=== PATIENT | male | born 1970 | race Caucasian/White ===

== ENCOUNTER → 2018-01-05 | Outpatient (CLI) | payer OTHER | END | disposition home or self-care (01) | LOC: ECHO 12:34 | DX: I25.10 Atherosclerotic heart disease of native coronary artery without angina pectoris (principal); I10 Essential (primary) hypertension; E11.9 Type 2 diabetes mellitus without complications; R53.83 Other fatigue; R60.0 Localized edema | CPT/HCPCS: 93306 ==

== ENCOUNTER 2018-06-20 05:45 | Emergency (ER) | payer OTHER ==
[~2018-06-20] VITALS: Ht 175.3 cm; Wt 106.6 kg
[~2018-06-20 05:45] MED LIST: AMLO10TA6 PO; ASPI-252 PO; ATEN100T PO; ATOR20TA PO; CARV12.5 PO; CLOP75TA57 PO; HYDR-971 PO; HYDR25TA9 PO; LOSA100T2 PO; LOSA100T7 PO; METF10007 PO; METF500T16 PO; SULF1TAB24 PO
--- NOTE | 2018-06-20 06:20 | EKG ---
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
[2018-06-20 06:27] LABS: BASO # 0.1 x10^3/uL (0.0-0.2); BASO % 1 % (0-3); EOS # 0.3 x10^3/uL (0.0-0.7); EOS % 3 % (0-3); HEMATOCRIT 39.7 % (39.0-53.0); HEMOGLOBIN 14.5 g/dL (13.0-17.5); LYMPH # 1.5 x10^3/uL (1.0-4.8); LYMPH % 18 % (24-48); MEAN CORPUSCULAR HEMOGLOBIN 32 pg (25-35); MEAN CORPUSCULAR HGB CONC 37 g/dL (31-37); MEAN CORPUSCULAR VOLUME 88 fL (79-100); MONO # 0.5 x10^3/uL (0.0-1.1); MONO % 7 % (0-9); NEUT # 5.8 x10^3uL (1.8-7.7); NEUT % 71 % (31-73); PLATELET COUNT 236 x10^3/uL (140-400); RED BLOOD COUNT 4.52 x10^6/uL (4.30-5.70); RED CELL DISTRIBUTION WIDTH 12.7 % (11.5-14.5); WHITE BLOOD COUNT 8.2 x10^3/uL (4.0-11.0)
[2018-06-20] MEDS: NITROGLYCERIN SUBLINGUAL 0.4 MG BOTTLE OF 25. SL PRN (06:30)
[2018-06-20] MEDS: ASPIRIN 325 MG TABLET PO ONE (06:30)
[2018-06-20 06:42] LABS: CALCIUM 8.8 mg/dL (8.5-10.1); CREATININE 0.9 mg/dL (0.7-1.3); GFR 90.1
[2018-06-20 06:45] LABS: PROTHROMBIN TIME PATIENT 11.9 SEC (11.7-14.0)
[2018-06-20 06:48] LABS: ALBUMIN 3.3 g/dL (3.4-5.0); MAGNESIUM 1.8 mg/dL (1.8-2.4); TOTAL BILIRUBIN 0.5 mg/dL (0.2-1.0); TOTAL PROTEIN 6.6 g/dL (6.4-8.2)
--- NOTE | 2018-06-20 06:59 | PHYS DOC ---
Past Medical History Past Medical History: Diabetes-Type II, High Cholesterol, Hypertension, [place], MRSA Past Surgical History: Other Additional Past Surgical Histo: hernia repair and R hand surgery Alcohol Use: Occasionally Drug Use: None Adult General Chief Complaint Chief Complaint: CHEST PAIN HPI HPI Patient is a 48 year old L presented ER today for evaluation of chest pain since yesterday. Chest pain started yesterday, then he woke up this morning with more pain, he has history coronary artery disease, had a cardiac stent in the past. Patient went to [facility] for vacation, came back last night. He denies any cough or fever. Patient denies any lower extremity pain or swelling. Review of Systems Review of Systems Constitutional: Denies fever or chills [] Eyes: Denies change in visual acuity, redness, or eye pain [] HENT: Denies nasal congestion or sore throat [] Respiratory: Denies cough or shortness of breath [] Cardiovascular: Positive for chest pain. GI: Denies abdominal pain, nausea, vomiting, bloody stools or diarrhea [] : Denies dysuria or hematuria [] Musculoskeletal: Denies back pain or joint pain [] Integument: Denies rash or skin lesions [] Neurologic: Denies headache, focal weakness or sensory changes [] Endocrine: Denies polyuria or polydipsia [] All other systems were reviewed and found to be within normal limits, except as documented in this note. Current Medications Current Medications Current Medications Medications (Trade) Dose Ordered Sig/Juan Start Time Stop Time Status Last Admin Dose Admin Aspirin (Cathleen Aspirin) 325 mg 1X ONCE 06/20/18 06:30 06/20/18 06:31 DC 06/20/18 06:30 325 MG Info (CONTRAST GIVEN -- Rx MONITORING) 1 each PRN DAILY PRN 06/20/18 07:15 06/22/18 07:14 Iohexol (Omnipaque 300 Mg/ml) 75 ml 1X ONCE 06/20/18 07:00 06/20/18 07:01 DC 06/20/18 07:26 75 ML Nitroglycerin (Nitrostat) 0.4 mg PRN Q5MIN PRN 06/20/18 06:00 06/21/18 05:59 06/20/18 06:30 0.4 MG Potassium Chloride (Klor-Con) 40 meq 1X ONCE 06/20/18 08:30 10/31/18 08:31 Allergies Allergies Allergies Coded Allergies Type Severity Reaction Last Updated Verified No Known Drug Allergies 10/11/14 No Physical Exam Physical Exam Constitutional: Well developed, well nourished, no acute distress, non-toxic appearance. [] HENT: Normocephalic, atraumatic, bilateral external ears normal, oropharynx moist, no oral exudates, nose normal. [] Eyes: PERRLA, EOMI, conjunctiva normal, no discharge. [] Neck: Normal range of motion, no tenderness, supple, no stridor. [] Cardiovascular:Heart rate regular rhythm, no murmur, BILATERAL LOWER EXTREMITIES PITTING EDEMA 2 PLUS. Lungs & Thorax: Bilateral breath sounds clear to auscultation [] Abdomen: Bowel sounds normal, soft, no tenderness, no masses, no pulsatile masses. [] Skin: Warm, dry, no erythema, no rash. [] Back: No tenderness, no CVA tenderness. [] Extremities: No tenderness, no cyanosis, no clubbing, ROM intact, no edema. [] Neurologic: Alert and oriented X 3, normal motor function, normal sensory function, no focal deficits noted. [] Psychologic: Affect normal, judgement normal, mood normal. [] Current Patient Data Vital Signs Vital Signs Date Time Temp Pulse Resp B/P (MAP) Pulse Ox O2 Delivery O2 Flow Rate FiO2 06/20/18 06:30 83 139/88 06/20/18 06:25 18 96 Room Air 06/20/18 05:45 97.8 97.8 Lab Values Laboratory Tests Test 06/20/18 06:05 White Blood Count 8.2 x10^3/uL (4.0-11.0) Red Blood Count 4.52 x10^6/uL (4.30-5.70) Hemoglobin 14.5 g/dL (13.0-17.5) Hematocrit 39.7 % (39.0-53.0) Mean Corpuscular Volume 88 fL (79-100) Mean Corpuscular Hemoglobin 32 pg (25-35) Mean Corpuscular Hemoglobin Concent 37 g/dL (31-37) Red Cell Distribution Width 12.7 % (11.5-14.5) Platelet Count 236 x10^3/uL (140-400) Neutrophils (%) (Auto) 71 % (31-73) Lymphocytes (%) (Auto) 18 % (24-48) L Monocytes (%) (Auto) 7 % (0-9) Eosinophils (%) (Auto) 3 % (0-3) Basophils (%) (Auto) 1 % (0-3) Neutrophils # (Auto) 5.8 x10^3uL (1.8-7.7) Lymphocytes # (Auto) 1.5 x10^3/uL (1.0-4.8) Monocytes # (Auto) 0.5 x10^3/uL (0.0-1.1) Eosinophils # (Auto) 0.3 x10^3/uL (0.0-0.7) Basophils # (Auto) 0.1 x10^3/uL (0.0-0.2) Prothrombin Time 11.9 SEC (11.7-14.0) Prothrombin Time INR 0.9 (0.8-1.1) PTT 24 SEC (24-38) D-Dimer (Michelle) 0.46 ug/mlFEU (0.00-0.50) Sodium Level 139 mmol/L (136-145) Potassium Level 3.0 mmol/L (3.5-5.1) L Chloride Level 101 mmol/L (98-107) Carbon Dioxide Level 28 mmol/L (21-32) Anion Gap 10 (6-14) Blood Urea Nitrogen 18 mg/dL (8-26) Creatinine 0.9 mg/dL (0.7-1.3) Estimated GFR (Cockcroft-Gault) 90.1 BUN/Creatinine Ratio 20 (6-20) Glucose Level 256 mg/dL (70-99) H Calcium Level 8.8 mg/dL (8.5-10.1) Magnesium Level 1.8 mg/dL (1.8-2.4) Total Bilirubin 0.5 mg/dL (0.2-1.0) Aspartate Amino Transferase (AST) 92 U/L (15-37) H Alanine Aminotransferase (ALT) 129 U/L (16-63) H Alkaline Phosphatase 103 U/L (46-116) Creatine Kinase 191 U/L (39-308) Creatine Kinase MB (Mass) 1.0 ng/mL (0.0-3.6) Creatine Kinase MB Relative Index 0.5 % (0-4) Troponin I Quantitative 0.017 ng/mL (0.000-0.055) VO-Hkn-Y-Type Natriuretic Peptide 23 pg/mL (0-124) Total Protein 6.6 g/dL (6.4-8.2) Albumin 3.3 g/dL (3.4-5.0) L Albumin/Globulin Ratio 1.0 (1.0-1.7) Lipase 119 U/L (73-393) Laboratory Tests 06/20/18 06:05 Laboratory Tests 06/20/18 06:05 EKG EKG EKG: HEART RATE OF 86 BPM, SINUS RHYTHM, NO STEMI. Radiology/Procedures Radiology/Procedures [[facility] [address] [place], [place] [id number] IMAGING REPORT Signed PATIENT: MEGHANN VU ACCOUNT: [id number] : 1970 LOCATION: ER AGE: 48 SEX: M EXAM STATUS: REG ER ORD. PHYSICIAN: PARAG GUZMÁN DO REASON: CHEST PAIN, SOA PROCEDURE: CT ANGIOGRAPHY CHEST CTA of the chest with contrast, 06/20/2018: HISTORY: Chest pain, shortness of breath Multidetector CT imaging was performed following an IV bolus injection of iodinated contrast material. Multiplanar reconstructions were produced including coronal MIP images. The degree of opacification of the central pulmonary arteries is suboptimal due to technical factors. No filling defects are seen in the central pulmonary arteries. Small peripheral emboli cannot be excluded. The thoracic aorta is of normal caliber without evidence of dissection. Moderate coronary artery calcifications are present. No mediastinal adenopathy is seen. There are calcified granulomata in the lungs. There is minimal dependent atelectasis. No pulmonary consolidation or mass is seen. There is no evidence of pleural fluid. IMPRESSION: 1. No CT evidence of central pulmonary emboli, although the degree of pulmonary artery opacification was suboptimal. 2. Moderate coronary artery calcifications. PQRS Compliance Statement: One or more of the following individualized dose reduction techniques were utilized for this examination: 1. Automated exposure control 2. Adjustment of the mA and/or kV according to patient size 3. Use of iterative reconstruction technique Electronically signed by: Vijay Fang MD (06/20/2018 7:55 AM) [facility] DICTATED and SIGNED BY: VIJAY FANG MD DATE: 06/20/18 0746 ] Course & Med Decision Making Course & Med Decision Making Pertinent Labs and Imaging studies reviewed. (See chart for details) [] Dragon Disclaimer Dragon Disclaimer This electronic medical record was generated, in whole or in part, using a voice recognition dictation system. Departure Departure Impression: Primary Impression: Chest pain Disposition: ADMITTED INPATIENT Admitting Physician: Karla Prado Referrals: NERIS FLORES MD (PCP) PARAG GUZMÁN DO Jun 20, 2018 06:59
[2018-06-20] MEDS ORDERED: CONTRAST GIVEN. MC PRN (07:15)
[2018-06-20] MEDS: IOHEXOL 300 MG/ML 100ML VIAL. IV ONE (07:26)
--- NOTE | 2018-06-20 07:48 | RAD ---
Portable chest, 06/20/2018: HISTORY: Chest pain The heart size and pulmonary vascularity are normal. No pulmonary infiltrate is seen. There is no evidence of pleural fluid. IMPRESSION: No acute cardiopulmonary abnormality is detected. Electronically signed by: Vijay Fang MD (06/20/2018 7:45 AM) [facility]
--- NOTE | 2018-06-20 07:58 | RAD ---
CTA of the chest with contrast, 06/20/2018: HISTORY: Chest pain, shortness of breath Multidetector CT imaging was performed following an IV bolus injection of iodinated contrast material. Multiplanar reconstructions were produced including coronal MIP images. The degree of opacification of the central pulmonary arteries is suboptimal due to technical factors. No filling defects are seen in the central pulmonary arteries. Small peripheral emboli cannot be excluded. The thoracic aorta is of normal caliber without evidence of dissection. Moderate coronary artery calcifications are present. No mediastinal adenopathy is seen. There are calcified granulomata in the lungs. There is minimal dependent atelectasis. No pulmonary consolidation or mass is seen. There is no evidence of pleural fluid. IMPRESSION: 1. No CT evidence of central pulmonary emboli, although the degree of pulmonary artery opacification was suboptimal. 2. Moderate coronary artery calcifications. PQRS Compliance Statement: One or more of the following individualized dose reduction techniques were utilized for this examination: 1. Automated exposure control 2. Adjustment of the mA and/or kV according to patient size 3. Use of iterative reconstruction technique Electronically signed by: Vijay Fang MD (06/20/2018 7:55 AM) [facility]
[2018-06-20] MEDS ORDERED: ONDANSETRON PF 4 MG/2 ML VIAL. IV PRN (08:30)
--- NOTE | 2018-06-20 08:51 | PDOC2 ---
CONSULT Date of Consult Date of Consult DATE: 06/20/18 TIME: 08:43 Reason for Consult Reason for Consult: Chest pain, possible admit Referring Physician Referring Physician: Dr. Mtz Identification/Chief Complaint Chief Complaint Chest pain History of Present Illness Reason for Visit: Mr. Torres is a 48-year-old male with past medical history of cardiac artery disease with history of [place] status post stent placement in 2014, uncontrolled type II diabetes, hypertension, hyperlipidemia, former smoker, who presents to the emergency room this morning for acute onset chest pain. He reports he was started in the upper mid abdomen and lower sternum, felt like pressure and twisting. It resolved over about 30-45 minutes spontaneously. He notes he has had similar pain approximately 2-3 days ago that resolved spontaneously as well. He denies any exertional component to this chest pain. He denies any radiation. He denies any diaphoresis or lightheadedness. He does note some difficulty with respiration while having chest pain. All chest pain and difficulty breathing has resolved at this point in time. He was evaluated in the emergency room with labs, EKG, chest x-ray, CT angiogram of the chest. Troponin was negative with EKG showing old infarct no acute ST changes. Chest x- ray was unremarkable. CT angiogram was also unremarkable, apart from moderate coronary artery disease noted. Otherwise unremarkable. Past Medical History Past Medical History as above Past Surgical History Past Surgical History stent placement in 2014 Family History Family History No significant family history for coronary artery disease. Daughter has type 1 diabetes. Social History Social History Former smoker for many years, quit in 2014. Social alcohol use. No recreational drug use. Current Problem List Problem List Problems Medical Problems: (1) Chest pain Status: Acute Current Medications Current Medications Current Medications Aspirin (Cathleen Aspirin) 325 mg 1X ONCE PO Last administered on 06/20/18at 06: 30; Start 06/20/18 at 06:30; Stop 06/20/18 at 06:31; Status DC Nitroglycerin (Nitrostat) 0.4 mg PRN Q5MIN PRN SL CP RATING > 1/10 Last administered on 06/20/18at 06:30; Start 06/20/18 at 06:00; Stop 06/21/18 at 05: 59 Iohexol (Omnipaque 300 Mg/ml) 75 ml 1X ONCE IV Last administered on at 07:26; Start 06/20/18 at 07:00; Stop 06/20/18 at 07:01; Status DC Info (CONTRAST GIVEN -- Rx MONITORING) 1 each PRN DAILY PRN MC SEE COMMENTS; Start 06/20/18 at 07:15; Stop 06/22/18 at 07:14 Potassium Chloride (Klor-Con) 40 meq 1X ONCE PO ; Start 06/20/18 at 08:30; Stop 06/20/18 at 08:31; Status DC Ondansetron HCl (Zofran) 4 mg PRN Q8HRS PRN IV NAUSEA/VOMITING; Start at 08:30; Stop 06/21/18 at 08:29 Active Scripts Active [place] 5-325 Tablet (Acetaminophen/Hydrocodone Bitart) 1 Each Tablet 1-2 Tab PO Q4-6HRS Bactrim Ds Tablet (Sulfamethoxazole/Trimethoprim) 1 Each Tablet 1 Tab PO BID Plavix (Clopidogrel Bisulfate) 75 Mg Tablet 75 Mg PO DAILYWBKFT Coreg (Carvedilol) 12.5 Mg Tablet 12.5 Mg PO BIDWMEALS Lipitor (Atorvastatin Calcium) 20 Mg Tablet 20 Mg PO QHS Ecotrin (Aspirin) 325 Mg Tablet. 325 Mg PO DAILYWBKFT Reported Cozaar (Losartan Potassium) 100 Mg Tablet 1 Tab PO DAILY Metformin Hcl 500 Mg Tablet 500 Mg PO DAILYWSUP Hydrochlorothiazide Tablet (Hydrochlorothiazide) 25 Mg Tablet 25 Mg PO DAILY Losartan Potassium 100 Mg Tablet 100 Mg PO DAILY Amlodipine Besylate 10 Mg Tablet 10 Mg PO DAILY Metformin Hcl 1,000 Mg Tablet 1,000 Mg PO DAILYWBKFT Allergies Allergies: Coded Allergies: No Known Drug Allergies (Unverified , 10/11/14) ROS Review of System As noted above, otherwise negative. Physical Exam Physical Exam Alert, oriented, no acute distress CTAB, nonlabored respirations RRR, no murmur Cooperative, calm Vitals VITALS Vital Signs Date Time Temp Pulse Resp B/P (MAP) Pulse Ox O2 Delivery O2 Flow Rate FiO2 06/20/18 06:30 83 139/88 06/20/18 06:25 18 96 Room Air 06/20/18 05:45 97.8 97.8 Labs Labs Laboratory Tests Test 06/20/18 06:05 White Blood Count 8.2 x10^3/uL (4.0-11.0) Red Blood Count 4.52 x10^6/uL (4.30-5.70) Hemoglobin 14.5 g/dL (13.0-17.5) Hematocrit 39.7 % (39.0-53.0) Mean Corpuscular Volume 88 fL (79-100) Mean Corpuscular Hemoglobin 32 pg (25-35) Mean Corpuscular Hemoglobin Concent 37 g/dL (31-37) Red Cell Distribution Width 12.7 % (11.5-14.5) Platelet Count 236 x10^3/uL (140-400) Neutrophils (%) (Auto) 71 % (31-73) Lymphocytes (%) (Auto) 18 % (24-48) Monocytes (%) (Auto) 7 % (0-9) Eosinophils (%) (Auto) 3 % (0-3) Basophils (%) (Auto) 1 % (0-3) Neutrophils # (Auto) 5.8 x10^3uL (1.8-7.7) Lymphocytes # (Auto) 1.5 x10^3/uL (1.0-4.8) Monocytes # (Auto) 0.5 x10^3/uL (0.0-1.1) Eosinophils # (Auto) 0.3 x10^3/uL (0.0-0.7) Basophils # (Auto) 0.1 x10^3/uL (0.0-0.2) Prothrombin Time 11.9 SEC (11.7-14.0) Prothromb Time International Ratio 0.9 (0.8-1.1) Activated Partial Thromboplast Time 24 SEC (24-38) D-Dimer (Michelle) 0.46 ug/mlFEU (0.00-0.50) Sodium Level 139 mmol/L (136-145) Potassium Level 3.0 mmol/L (3.5-5.1) Chloride Level 101 mmol/L (98-107) Carbon Dioxide Level 28 mmol/L (21-32) Anion Gap 10 (6-14) Blood Urea Nitrogen 18 mg/dL (8-26) Creatinine 0.9 mg/dL (0.7-1.3) Estimated GFR (Cockcroft-Gault) 90.1 BUN/Creatinine Ratio 20 (6-20) Glucose Level 256 mg/dL (70-99) Calcium Level 8.8 mg/dL (8.5-10.1) Magnesium Level 1.8 mg/dL (1.8-2.4) Total Bilirubin 0.5 mg/dL (0.2-1.0) Aspartate Amino Transf (AST/SGOT) 92 U/L (15-37) Alanine Aminotransferase (ALT/SGPT) 129 U/L (16-63) Alkaline Phosphatase 103 U/L (46-116) Creatine Kinase 191 U/L (39-308) Creatine Kinase MB (Mass) 1.0 ng/mL (0.0-3.6) Creatine Kinase MB Relative Index 0.5 % (0-4) Troponin I Quantitative 0.017 ng/mL (0.000-0.055) NL-Bhp-E-Type Natriuretic Peptide 23 pg/mL (0-124) Total Protein 6.6 g/dL (6.4-8.2) Albumin 3.3 g/dL (3.4-5.0) Albumin/Globulin Ratio 1.0 (1.0-1.7) Lipase 119 U/L (73-393) Laboratory Tests Test 06/20/18 06:05 White Blood Count 8.2 x10^3/uL (4.0-11.0) Red Blood Count 4.52 x10^6/uL (4.30-5.70) Hemoglobin 14.5 g/dL (13.0-17.5) Hematocrit 39.7 % (39.0-53.0) Mean Corpuscular Volume 88 fL (79-100) Mean Corpuscular Hemoglobin 32 pg (25-35) Mean Corpuscular Hemoglobin Concent 37 g/dL (31-37) Red Cell Distribution Width 12.7 % (11.5-14.5) Platelet Count 236 x10^3/uL (140-400) Neutrophils (%) (Auto) 71 % (31-73) Lymphocytes (%) (Auto) 18 % (24-48) Monocytes (%) (Auto) 7 % (0-9) Eosinophils (%) (Auto) 3 % (0-3) Basophils (%) (Auto) 1 % (0-3) Neutrophils # (Auto) 5.8 x10^3uL (1.8-7.7) Lymphocytes # (Auto) 1.5 x10^3/uL (1.0-4.8) Monocytes # (Auto) 0.5 x10^3/uL (0.0-1.1) Eosinophils # (Auto) 0.3 x10^3/uL (0.0-0.7) Basophils # (Auto) 0.1 x10^3/uL (0.0-0.2) Prothrombin Time 11.9 SEC (11.7-14.0) Prothromb Time International Ratio 0.9 (0.8-1.1) Activated Partial Thromboplast Time 24 SEC (24-38) D-Dimer (Michelle) 0.46 ug/mlFEU (0.00-0.50) Sodium Level 139 mmol/L (136-145) Potassium Level 3.0 mmol/L (3.5-5.1) Chloride Level 101 mmol/L (98-107) Carbon Dioxide Level 28 mmol/L (21-32) Anion Gap 10 (6-14) Blood Urea Nitrogen 18 mg/dL (8-26) Creatinine 0.9 mg/dL (0.7-1.3) Estimated GFR (Cockcroft-Gault) 90.1 BUN/Creatinine Ratio 20 (6-20) Glucose Level 256 mg/dL (70-99) Calcium Level 8.8 mg/dL (8.5-10.1) Magnesium Level 1.8 mg/dL (1.8-2.4) Total Bilirubin 0.5 mg/dL (0.2-1.0) Aspartate Amino Transf (AST/SGOT) 92 U/L (15-37) Alanine Aminotransferase (ALT/SGPT) 129 U/L (16-63) Alkaline Phosphatase 103 U/L (46-116) Creatine Kinase 191 U/L (39-308) Creatine Kinase MB (Mass) 1.0 ng/mL (0.0-3.6) Creatine Kinase MB Relative Index 0.5 % (0-4) Troponin I Quantitative 0.017 ng/mL (0.000-0.055) OH-Jbs-I-Type Natriuretic Peptide 23 pg/mL (0-124) Total Protein 6.6 g/dL (6.4-8.2) Albumin 3.3 g/dL (3.4-5.0) Albumin/Globulin Ratio 1.0 (1.0-1.7) Lipase 119 U/L (73-393) Assessment/Plan Assessment/Plan Chest pain Coronary artery disease status post [place], stent placement Uncontrolled type 2 diabetes Hypertension Hyperlipidemia Nicotine dependence Obesity Discussed options for management with patient. He prefers to repeat troponin and EKG in the ED and if negative, discharge with close follow-up with primary care and with Dr. Lund, his telegraph mechanic. He would certainly benefit from further workup with either a stress test or cardiac catheterization as outpatient if these tests are negative. We discussed continued smoking avoidance and improving dietary and lifestyle modification to improve his uncontrolled type 2 diabetes. If testing is positive, he will be admitted and cardiology will be consulted likely for urgent cardiac catheterization. HILARY BANG MD Jun 20, 2018 08:51
[2018-06-20] MEDS: POTASSIUM CHLORIDE 20 MEQ TABLET.ER. PO ONE (09:30)
[2018-06-20 10:00] VITALS: BP 149/87
--- NOTE | 2018-06-20 10:35 | EKG ---
[facility] [address] [place] [address] Test Date: 2018-06-20 Test Time: 09:24:47 Pat Name: MEGHANN VU Department: Room: Gender: M Medical Device: : 1970 Requested By: PARAG GUZMÁN Order Number: [id number] Reading MD: Artem Cooley Measurements Intervals [place] Rate: 73 P: 0 CA: 164 QRS: 11 QRSD: 90 T: 36 QT: 406 QTc: 451 Interpretive Statements SINUS RHYTHM QRS(T) CONTOUR ABNORMALITY CONSISTENT WITH ANTEROSEPTAL INFARCT PROBABLY OLD ABNORMAL ECG No previous ECG available for comparison Electronically Signed On 06-22-2018 10:31:40 CDT by Artem Cooley
== END 2018-06-20 11:07 | disposition home or self-care (01) ==
LOC: ER 05:45
DX: R07.89 Other chest pain (principal); R60.0 Localized edema; E11.9 Type 2 diabetes mellitus without complications; E78.00 Pure hypercholesterolemia, unspecified; I10 Essential (primary) hypertension; I25.2 Old myocardial infarction
CPT/HCPCS: 36415; 71045; 71275; 80053; 82553; 83690; 83735; 83880; 84484; 85025; 85379; 85610; 85730; 93005; 99285; Q9967

== ENCOUNTER 2018-07-04 08:04 | Inpatient (IN) | payer OTHER ==
[~2018-07-04] VITALS: Ht 175.3 cm; Wt 111.1 kg
[2018-07-04] VITALS (12 sets, daily range): BP systolic 136–159; BP diastolic 74–106
[~2018-07-04 08:04] MED LIST changes: +HYDR-2145 PO; +HYDR-3164 PO; -HYDR-971 PO; -HYDR25TA9 PO
[2018-07-04] MEDS ORDERED: SITA100T PO (08:26)
[2018-07-04] MEDS ORDERED: BUPR100T7 PO (08:26)
[2018-07-04 08:51] LABS: PROTHROMBIN TIME PATIENT 13.1 SEC (11.7-14.0)
[2018-07-04 08:54] LABS: CALCIUM 9.2 mg/dL (8.5-10.1); CREATININE 0.9 mg/dL (0.7-1.3); GFR 90.1
[2018-07-04 09:03] LABS: HEMATOCRIT 40.4 % (39.0-53.0); HEMOGLOBIN 14.7 g/dL (13.0-17.5); RED BLOOD COUNT 4.57 x10^6/uL (4.30-5.70); RED CELL DISTRIBUTION WIDTH 12.9 % (11.5-14.5); WHITE BLOOD COUNT 7.8 x10^3/uL (4.0-11.0)
[2018-07-04] MEDS ORDERED: MIDAZOLAM HCL/PF 2 MG/2 ML VIAL. ONE (09:46)
[2018-07-04] MEDS ORDERED: fentaNYL PF VIAL 100 MCG/2 ML VIAL ONE ×2 (09:46→11:05)
[2018-07-04] MEDS ORDERED: IOHEXOL 300 MG/ML 100ML VIAL. ONE ×2 (09:52→10:35)
[2018-07-04] MEDS ORDERED: LIDOCAINE 1% PF 30 ML VIAL. ONE (09:52)
[2018-07-04] MEDS ORDERED: IOHEXOL 300 MG/ML 50 ML VIAL. IART ONE (10:15)
[2018-07-04] MEDS ORDERED: LIDOCAINE 1% PF 30 ML VIAL. INJ ONE (10:15)
[2018-07-04] MEDS ORDERED: MIDAZOLAM HCL/PF 2 MG/2 ML VIAL. IV ONE (10:15)
[2018-07-04] MEDS ORDERED: fentaNYL PF VIAL 100 MCG/2 ML VIAL IV ONE ×2 (10:15→11:30)
[2018-07-04] MEDS ORDERED: HEPARIN for IV BOLUS 10,000 UNIT/10 ML VIAL. ONE ×2 (10:24→11:02)
[2018-07-04] MEDS ORDERED: HEPARIN for IV BOLUS 10,000 UNIT/10 ML VIAL. IV ONE ×2 (10:30→11:15)
[2018-07-04] MEDS: IV NORMAL SALINE 1000ML BAG 1,000 ML IV SCH ×2 (11:15→23:45)
[2018-07-04] MEDS ORDERED: fentaNYL PF VIAL 100 MCG/2 ML VIAL IV PRN (13:15)
[2018-07-04] MEDS ORDERED: oxyCODONE/APAP 5/325 1 TAB TABLET PO PRN (13:15)
[2018-07-04] MEDS: CARVEDILOL 12.5 MG TABLET. PO SCH (17:24)
[2018-07-04] MEDS ORDERED: IBUPROFEN 200 MG TABLET. PO PRN (19:30)
--- NOTE | 2018-07-04 20:26 | CARD ---
MR#: [id number] Date of Study: 07/04/2018 Ordering Physician: FREDY LUND Referring Physician: FREDY LUND Tech: NAI PUCKETT RTR APPROVED REPORT Technologist: NAI PUCKETT RTR Nurse: REY ABAD RN Procedure(s) performed: MODERATE SEDATION TIME: 87 MINUTES HISTORY The patient is a 48 year-old male with a history of : previous [place], coronary artery disease, previous PCI (The PCI date was ), hypertension, dyslipidemia, family history of premature CAD, The patient has been having episodes of chest pains and had an abnormal stress test., He is coming in for a left hea rt catheterization possible PTCA possible stent., . PROCEDURE NARRATIVE After obtaining informed consent the patient was brought into the [facility]. The right groin area was prepped and draped in the usual fashion. The area was infiltrated with Xylocaine to obtain topical anesthesia. Using Seldinger technique a Cordis sheath was inserted into the femoral artery. Through this a left Ileana catheter was advanced and utilized to engage the left coronary os. Views of the left coronary artery were then done. A right Ileana catheter was then utilized to engage the right coronary os abuse of the right coronar y artery with a known. A pigtail catheter was then advanced all the way to the room with the AO and then we crossed the aort ic valve into the left ventricle, pressures were taken. The left ventriculogram was then done. Pullback pressures were done from the LV to the AO. I then carefully evaluated to findings. Coronaries: The left main is large and normal. The LAD is a large vessel that has a stent in the prox imal to mid segment that is open no in-stent disease was seen. The circumflex is a large vessel that is normal. The obtuse marginal is 100% occluded over a long segment of the proximal segment and recei ves collaterals from the RCA, it is a small vessel. The ramus intermediate is a small vessel in [facility] that has diffuse disease of the proximal to mid segment and appears to be capped there at an acute bend. The RCA see large vessel that has no significant areas of stenosis. Ventriculogram: The left ventricle is normal in size with a global ejection fraction was estimated to be about 55%. The left ventricular end-diastolic pressure was 14 mmHg. There was no gradient across the aortic valve on the pullback. After I evaluated the anatomy of the coronary stent I felt that the occluded obtuse marginal is a johnna g-standing chronic total occlusion and it is already receiving collaterals from the RCA therefore I d id not feel that we needed to do any intervention with that vessel. The ramus intermediate appears to be essentially totally occluded at an acute bend and there was some flow through there and I couldn't tell if he was just from a small bridging collateral or not and I decided to go ahead and attempt to open the vessel if possible. After the patient was fully heparinized a left Ileana guiding catheter was utilized to engage the le ft main. A guidewire was then advanced into the left main and into the ramus intermediate. Multiple attempts a t crossing the area of the acute bend with the obstruction were not successful. I tried bringing a 2. 0 mm balloon 4 extra-support but this did not work in crossing the area. I had tried with 3 different wires therefore at this point I did interview and the vessels were unchanged and I decided to termin ate the procedure at this point. An ACT was done and then an Angio-Seal collagen plug was deployed after the sheath was pulled. There did not appear to be any significant bleeding therefore a dressing was applied to the groin and the p atient was transferred to a room in satisfactory condition after tolerating the procedure rather well . Conclusion This patient has coronary artery disease, the stent to the LAD is open and has no significant resteno sis. The blocked obtuse marginal is a chronic total occlusion and I would just recommend to leave th at alone since it's already created collateral circulation. This ramus intermediate was attempted to be open but the wire wouldn't cross and every time we tried with 3 different wires they would to prolapse into a small branch that was taking off at that bend. In view of this I decided to stop the attempts at trying to open up that small ramus intermediate. I am concerned with the fact that there was extensive manipulation into the ramus intermediate with l arge LAD and circumflex in the vicinity therefore I would like to observe and monitor the patient unt il tomorrow and to continue with his aspirin and Plavix. Recommendations Daily ASA with Plavix for at least one year Signed by : Fredy Lund MD Electronically Approved : 07/04/2018 20:26:00
[2018-07-04] MEDS ORDERED: ATORVASTATIN CALCIUM 20 MG TABLET PO SCH (21:00)
[2018-07-05 03:41] VITALS: BP 131/81
[2018-07-05 07:00] VITALS: BP 135/79
[2018-07-05] MEDS ORDERED: ASPIRIN ENTERIC COATED 325 MG TABLET.DR. PO SCH (08:00)
[2018-07-05] MEDS ORDERED: CLOPIDOGREL BISULFATE 75 MG TABLET PO SCH (08:00)
[2018-07-05 08:35] LABS: ALBUMIN 3.1 g/dL (3.4-5.0); ALBUMIN/GLOBULIN RATIO 0.8 (1.0-1.7); CALCIUM 8.6 mg/dL (8.5-10.1); CREATININE 0.8 mg/dL (0.7-1.3); GFR 103.2; POTASSIUM 3.3 mmol/L (3.5-5.1); TOTAL BILIRUBIN 0.7 mg/dL (0.2-1.0); TOTAL PROTEIN 6.8 g/dL (6.4-8.2)
[2018-07-05] MEDS ORDERED: hydroCHLOROthiazide 25 MG TABLET PO SCH (09:00)
[2018-07-05] MEDS ORDERED: amLODIPine BESYLATE 10 MG TABLET PO SCH (09:00)
[2018-07-05] MEDS ORDERED: buPROPion SR 100 MG TABLET.SA. PO SCH (09:00)
[2018-07-05] MEDS ORDERED: LINAGLIPTIN 5 MG TABLET PO SCH (09:00)
[2018-07-05] MEDS ORDERED: LOSARTAN POTASSIUM 50 MG TABLET. PO SCH (09:00)
[2018-07-05] MEDS: CARVEDILOL 12.5 MG TABLET. PO SCH (09:02)
[2018-07-05 09:18] LABS: BASO # 0.1 x10^3/uL (0.0-0.2); BASO % 1 % (0-3); EOS # 0.3 x10^3/uL (0.0-0.7); EOS % 4 % (0-3); HEMATOCRIT 39.6 % (39.0-53.0); HEMOGLOBIN 14.5 g/dL (13.0-17.5); LYMPH # 1.3 x10^3/uL (1.0-4.8); LYMPH % 17 % (24-48); MEAN CORPUSCULAR HEMOGLOBIN 32 pg (25-35); MEAN CORPUSCULAR VOLUME 88 fL (79-100); MONO # 0.5 x10^3/uL (0.0-1.1); MONO % 6 % (0-9); NEUT # 5.7 x10^3uL (1.8-7.7); NEUT % 73 % (31-73); PLATELET COUNT 244 x10^3/uL (140-400); RED BLOOD COUNT 4.53 x10^6/uL (4.30-5.70); RED CELL DISTRIBUTION WIDTH 12.9 % (11.5-14.5); WHITE BLOOD COUNT 7.8 x10^3/uL (4.0-11.0)
[2018-07-05 09:39] LABS: MEAN CORPUSCULAR HGB CONC 36 g/dL (31-37)
[2018-07-05 11:00] VITALS: BP 152/94
[2018-07-05] MEDS: IV NORMAL SALINE 1000ML BAG 1,000 ML IV SCH (11:34)
[2018-07-05] MEDS ORDERED: RANO500T2 PO (14:00)
[2018-07-05] MEDS ORDERED: POTASSIUM CHLORIDE 20 MEQ TABLET.ER. PO ONE (14:00)
--- NOTE | 2018-07-05 14:08 | PDOC3 ---
Discharge Summary Visit Information Date of Admission: Jul 04, 2018 Date of Discharge: Jul 05, 2018 Admitting Diagnosis: Chest Pain, CAD Admitting Diagnosis Comment: Patient came in for heart catheterization. Patient had a complete block of the ramus intermedius that could not be unblocked. Patient will be treated medically. Final Diagnosis Chest pain, CAD Brief Hospital Course Allergies Allergies Coded Allergies Type Severity Reaction Last Updated Verified No Known Drug Allergies 10/11/14 No Vital Signs Vital Signs Date Time Temp Pulse Resp B/P (MAP) Pulse Ox O2 Delivery O2 Flow Rate FiO2 07/05/18 11:00 98.2 82 20 152/94 (113) 98 Room Air 98.2 07/04/18 11:37 2.0 Lab Results Laboratory Tests Test 07/04/18 08:25 07/04/18 12:32 07/04/18 17:22 07/04/18 22:05 White Blood Count 7.8 x10^3/uL (4.0-11.0) Red Blood Count 4.57 x10^6/uL (4.30-5.70) Hemoglobin 14.7 g/dL (13.0-17.5) Hematocrit 40.4 % (39.0-53.0) Mean Corpuscular Volume 89 fL (79-100) Mean Corpuscular Hemoglobin 32 pg (25-35) Mean Corpuscular Hemoglobin Concent 36 g/dL (31-37) Red Cell Distribution Width 12.9 % (11.5-14.5) Platelet Count 271 x10^3/uL (140-400) Prothrombin Time 13.1 SEC (11.7-14.0) Prothromb Time International Ratio 1.0 (0.8-1.1) Sodium Level 140 mmol/L (136-145) Potassium Level 3.0 mmol/L (3.5-5.1) Chloride Level 99 mmol/L (98-107) Carbon Dioxide Level 30 mmol/L (21-32) Anion Gap 11 (6-14) Blood Urea Nitrogen 13 mg/dL (8-26) Creatinine 0.9 mg/dL (0.7-1.3) Estimated GFR (Cockcroft-Gault) 90.1 Glucose Level 310 mg/dL (70-99) Calcium Level 9.2 mg/dL (8.5-10.1) Glucose (Fingerstick) 265 mg/dL (70-99) 293 mg/dL (70-99) 291 mg/dL (70-99) Test 07/05/18 08:01 07/05/18 08:10 07/05/18 11:32 Glucose (Fingerstick) 218 mg/dL (70-99) 316 mg/dL (70-99) White Blood Count 7.8 x10^3/uL (4.0-11.0) Red Blood Count 4.53 x10^6/uL (4.30-5.70) Hemoglobin 14.5 g/dL (13.0-17.5) Hematocrit 39.6 % (39.0-53.0) Mean Corpuscular Volume 88 fL (79-100) Mean Corpuscular Hemoglobin 32 pg (25-35) Mean Corpuscular Hemoglobin Concent 36 g/dL (31-37) Red Cell Distribution Width 12.9 % (11.5-14.5) Platelet Count 244 x10^3/uL (140-400) Neutrophils (%) (Auto) 73 % (31-73) Lymphocytes (%) (Auto) 17 % (24-48) Monocytes (%) (Auto) 6 % (0-9) Eosinophils (%) (Auto) 4 % (0-3) Basophils (%) (Auto) 1 % (0-3) Neutrophils # (Auto) 5.7 x10^3uL (1.8-7.7) Lymphocytes # (Auto) 1.3 x10^3/uL (1.0-4.8) Monocytes # (Auto) 0.5 x10^3/uL (0.0-1.1) Eosinophils # (Auto) 0.3 x10^3/uL (0.0-0.7) Basophils # (Auto) 0.1 x10^3/uL (0.0-0.2) Sodium Level 138 mmol/L (136-145) Potassium Level 3.3 mmol/L (3.5-5.1) Chloride Level 100 mmol/L (98-107) Carbon Dioxide Level 30 mmol/L (21-32) Anion Gap 8 (6-14) Blood Urea Nitrogen 10 mg/dL (8-26) Creatinine 0.8 mg/dL (0.7-1.3) Estimated GFR (Cockcroft-Gault) 103.2 BUN/Creatinine Ratio 13 (6-20) Glucose Level 238 mg/dL (70-99) Calcium Level 8.6 mg/dL (8.5-10.1) Total Bilirubin 0.7 mg/dL (0.2-1.0) Aspartate Amino Transf (AST/SGOT) 43 U/L (15-37) Alanine Aminotransferase (ALT/SGPT) 108 U/L (16-63) Alkaline Phosphatase 94 U/L (46-116) Total Protein 6.8 g/dL (6.4-8.2) Albumin 3.1 g/dL (3.4-5.0) Albumin/Globulin Ratio 0.8 (1.0-1.7) Laboratory Tests Test 07/04/18 17:22 07/04/18 22:05 07/05/18 08:01 07/05/18 08:10 Glucose (Fingerstick) 293 mg/dL (70-99) 291 mg/dL (70-99) 218 mg/dL (70-99) White Blood Count 7.8 x10^3/uL (4.0-11.0) Red Blood Count 4.53 x10^6/uL (4.30-5.70) Hemoglobin 14.5 g/dL (13.0-17.5) Hematocrit 39.6 % (39.0-53.0) Mean Corpuscular Volume 88 fL (79-100) Mean Corpuscular Hemoglobin 32 pg (25-35) Mean Corpuscular Hemoglobin Concent 36 g/dL (31-37) Red Cell Distribution Width 12.9 % (11.5-14.5) Platelet Count 244 x10^3/uL (140-400) Neutrophils (%) (Auto) 73 % (31-73) Lymphocytes (%) (Auto) 17 % (24-48) Monocytes (%) (Auto) 6 % (0-9) Eosinophils (%) (Auto) 4 % (0-3) Basophils (%) (Auto) 1 % (0-3) Neutrophils # (Auto) 5.7 x10^3uL (1.8-7.7) Lymphocytes # (Auto) 1.3 x10^3/uL (1.0-4.8) Monocytes # (Auto) 0.5 x10^3/uL (0.0-1.1) Eosinophils # (Auto) 0.3 x10^3/uL (0.0-0.7) Basophils # (Auto) 0.1 x10^3/uL (0.0-0.2) Sodium Level 138 mmol/L (136-145) Potassium Level 3.3 mmol/L (3.5-5.1) Chloride Level 100 mmol/L (98-107) Carbon Dioxide Level 30 mmol/L (21-32) Anion Gap 8 (6-14) Blood Urea Nitrogen 10 mg/dL (8-26) Creatinine 0.8 mg/dL (0.7-1.3) Estimated GFR (Cockcroft-Gault) 103.2 BUN/Creatinine Ratio 13 (6-20) Glucose Level 238 mg/dL (70-99) Calcium Level 8.6 mg/dL (8.5-10.1) Total Bilirubin 0.7 mg/dL (0.2-1.0) Aspartate Amino Transf (AST/SGOT) 43 U/L (15-37) Alanine Aminotransferase (ALT/SGPT) 108 U/L (16-63) Alkaline Phosphatase 94 U/L (46-116) Total Protein 6.8 g/dL (6.4-8.2) Albumin 3.1 g/dL (3.4-5.0) Albumin/Globulin Ratio 0.8 (1.0-1.7) Test 07/05/18 11:32 Glucose (Fingerstick) 316 mg/dL (70-99) Brief Hospital Course Mr. Hill is a 48 old male who presented to the hospital with chest pain and CAD. Patient had a heart catheterization procedure preformed which showed that the stent in his Left anterior descending artery was open and showed a complete block in the ramus intermedius. After 3 attempts to unblock the artery were unsuccessful it was decided to treat the blockage medically. Patient was kept in the hospital over night. Patient had no problems overnight. Discharge Information Condition at Discharge: Improved, Stable Follow Up: Weeks Disposition/Orders: D/C to Home Scheduled Amlodipine Besylate (Amlodipine Besylate) 10 Mg Tablet, 10 MG PO DAILY, ( Reported) Entered as Reported by: Anand Montelongo on 10/11/14 1617 Last Taken: Unknown Dose on 07/04/18 Last Action: Continued on 07/04/181642 by KATIUSKA ABERNATHY Aspirin (Ecotrin) 325 Mg Tablet.dr, 325 MG PO DAILYWBKFT, #30 Prescribed by: NERIS FLORES on 10/14/14833 Last Taken: Unknown Dose on 07/04/18 Last Action: Continued on 07/04/181642 by KATIUSKA ABERNATHY Atorvastatin Calcium (Lipitor) 20 Mg Tablet, 20 MG PO QHS, #30 Prescribed by: NERIS FLORES on 10/14/14833 Last Taken: Unknown Dose on 07/04/18 Last Action: Continued on 07/04/181642 by KATIUSKA ABERNATHY Bupropion Hcl (Wellbutrin Sr) 100 Mg Tablet.er, 100 MG PO DAILY for depression, (Reported) Entered as Reported by: YAMILETH ANDRES on 07/04/18825 Last Taken: Unknown Dose on 07/04/18 Last Action: Continued on 07/04/181642 by KATIUSKA ABERNAHTY Carvedilol (Coreg) 12.5 Mg Tablet, 12.5 MG PO BIDWMEALS, #60 Prescribed by: NERIS FLORES on 10/14/14833 Last Taken: Unknown Dose on 07/04/18 Last Action: Continued on 07/04/181642 by KATIUSKA ABERNATHY Clopidogrel Bisulfate (Plavix) 75 Mg Tablet, 75 MG PO DAILYWBKFT, #30 Prescribed by: NERIS FLORES on 10/14/1434 Last Taken: Unknown Dose on 07/04/18 Last Action: Continued on 07/04/181642 by KATIUSKA ABERNATHY Hydrochlorothiazide (Hydrochlorothiazide Tablet ) 25 Mg Tablet, 25 MG PO DAILY for DIURETIC, Ref 0 (Reported) Entered as Reported by: Anand Montelongo on 10/11/141616 Last Taken: Unknown Dose on 07/04/18 Last Action: Continued on 07/04/181642 by KATIUSKA ABERNATHY Losartan Potassium (Losartan Potassium) 100 Mg Tablet, 100 MG PO DAILY, ( Reported) Entered as Reported by: Anand Montelongo on 10/11/141616 Last Taken: Unknown Dose on 07/04/18 Last Action: Converted on 07/04/181642 by KATIUSKA ABERNATHY Sitagliptin Phosphate (Januvia) 100 Mg Tablet, 1 TAB PO DAILY for diabetes, #30 Ref 5 (Reported) Entered as Reported by: YAMILETH ANDRES on 07/04/18 08 Last Taken: Unknown Dose on 07/03/18 Last Action: Converted on 07/04/18 1643 by CARISSA FLYNN MD Jul 05, 2018 14:08
--- NOTE | 2018-07-10 16:22 | PDOC1 ---
History and Physical Date of Admission Date of Admission DATE: 07/04/18 Identification/Chief Complaint Chief Complaint Chest pain History of Present Illness History of Present Illness Pt is a 48 y o gentleman that has a strong family Hx of CAD and has known CAD. the pt had a stent to the LAD last year. He was seen as an out pt because he was having episodes of chest pains and he was brought in for a L Heart Cath-poss. Pt has signed an informed consent. Past Medical History Cardiovascular: CAD, HTN, [place] Pulmonary: Bronchitis GI: GERD Family History Family History: Coronary Artery Disease Current Medications Current Medications Current Medications Fentanyl Citrate (Fentanyl 2ml Vial) 100 mcg STK-MED ONCE .ROUTE ; Start at 09:46; Stop 07/04/18 at 09:47; Status DC Midazolam HCl (Versed) 2 mg STK-MED ONCE .ROUTE ; Start 07/04/18 at 09:46; Stop 07/04/18 at 09:47; Status DC Iohexol (Omnipaque 300 Mg/ml) 100 ml STK-MED ONCE .ROUTE ; Start 07/04/18 at 09 :52; Stop 07/04/18 at 09:53; Status DC Lidocaine HCl (Xylocaine 1% Pf 30ml Vial) 30 ml STK-MED ONCE .ROUTE ; Start at 09:52; Stop 07/04/18 at 09:53; Status DC Heparin Sodium/ Sodium Chloride 1,000 ml @ As Directed STK-MED ONCE .ROUTE ; Start 07/04/18 at 09:52; Stop 07/04/18 at 09:53; Status DC Heparin Sodium/ Sodium Chloride (HEPARIN for ARTERIAL LINE FLUSH) 1,000 unit 1X ONCE IART Last administered on 07/04/18at 11:31; Start 07/04/18 at 10:15; Stop 07/04/18 at 10:16; Status DC Midazolam HCl (Versed) 2 mg 1X ONCE IV Last administered on 07/04/18at 11:33; Start 07/04/18 at 10:15; Stop 07/04/18 at 10:16; Status DC Fentanyl Citrate (Fentanyl 2ml Vial) 100 mcg 1X ONCE IV Last administered on 07/04/18at 11:32; Start 07/04/18 at 10:15; Stop 07/04/18 at 10:16; Status DC Iohexol (Omnipaque 300 Mg/ml) 50 ml 1X ONCE IART Last administered on at 10:15; Start 07/04/18 at 10:15; Stop 07/04/18 at 10:16; Status DC Lidocaine HCl (Xylocaine 1% Pf 30ml Vial) 30 ml 1X ONCE INJ Last administered on 07/04/18at 11:31; Start 07/04/18 at 10:15; Stop 07/04/18 at 10:16; Status DC Heparin Sodium (Porcine) (Heparin Sodium) 10,000 unit STK-MED ONCE .ROUTE ; Start 07/04/18 at 10:24; Stop 07/04/18 at 10:26; Status DC Heparin Sodium (Porcine) (Heparin Sodium) 10,000 unit 1X ONCE IV Last administered on 07/04/18at 11:33; Start 07/04/18 at 10:30; Stop 07/04/18 at 10 :32; Status DC Iohexol (Omnipaque 300 Mg/ml) 100 ml STK-MED ONCE .ROUTE ; Start 07/04/18 at 10 :35; Stop 07/04/18 at 10:36; Status DC Heparin Sodium/ Sodium Chloride 500 ml @ As Directed STK-MED ONCE .ROUTE ; Start 07/04/18 at 10:35; Stop 07/04/18 at 10:36; Status DC Heparin Sodium/ Sodium Chloride (HEPARIN for ARTERIAL LINE FLUSH) 1,000 unit 1X ONCE IART Last administered on 07/04/18at 11:31; Start 07/04/18 at 11:00; Stop 07/04/18 at 11:01; Status DC Heparin Sodium (Porcine) (Heparin Sodium) 10,000 unit STK-MED ONCE .ROUTE ; Start 07/04/18 at 11:02; Stop 07/04/18 at 11:03; Status DC Heparin Sodium (Porcine) (Heparin Sodium) 3,000 unit 1X ONCE IV Last administered on 07/04/18at 11:34; Start 07/04/18 at 11:15; Stop 07/04/18 at 11 :16; Status DC Fentanyl Citrate (Fentanyl 2ml Vial) 100 mcg STK-MED ONCE .ROUTE ; Start at 11:05; Stop 07/04/18 at 11:06; Status DC Sodium Chloride 1,000 ml @ 80 mls/hr [id number] IV Last administered on at 11:15; Start 07/04/18 at 11:15; Stop 07/05/18 at 15:40; Status DC Fentanyl Citrate (Fentanyl 2ml Vial) 25 mcg 1X ONCE IV Last administered on at 11:32; Start 07/04/18 at 11:30; Stop 07/04/18 at 11:31; Status DC Fentanyl Citrate (Fentanyl 2ml Vial) 50 mcg PRN Q4HRS PRN IV SEVERE PAIN Last administered on 07/04/18at 13:22; Start 07/04/18 at 13:15; Stop 07/05/18 at 15 :40; Status DC Oxycodone/ Acetaminophen (Percocet 5/325) 1 tab PRN Q6HRS PRN PO MODERATE TO SEVERE PAIN; Start 07/04/18 at 13:15; Stop 07/05/18 at 15:40; Status DC Influenza Virus Vaccine (Afluria Trivalent [id number] Syringe) 0.5 ml ONCE ONCE VAX IM Last administered on 07/04/18at 22:13; Start 07/04/18 at 17:00; Stop 07/04/18 at 17:01; Status DC Amlodipine Besylate (Norvasc) 10 mg DAILY PO Last administered on 07/05/18at 09 :02; Start 07/05/18 at 09:00; Stop 07/05/18 at 15:40; Status DC Aspirin (Ecotrin) 325 mg DAILYWBKFT PO Last administered on 07/05/18at 09:03; Start 07/05/18 at 08:00; Stop 07/05/18 at 15:40; Status DC Atorvastatin Calcium (Lipitor) 20 mg QHS PO Last administered on 07/04/18at 20: 18; Start 07/04/18 at 21:00; Stop 07/05/18 at 15:40; Status DC Bupropion HCl (Wellbutrin Sr) 100 mg DAILY PO Last administered on 07/05/18at 09:03; Start 07/05/18 at 09:00; Stop 07/05/18 at 15:40; Status DC Carvedilol (Coreg) 12.5 mg BIDWMEALS PO Last administered on 07/05/18at 09:02; Start 07/04/18 at 17:00; Stop 07/05/18 at 15:40; Status DC Clopidogrel Bisulfate (Plavix) 75 mg DAILYWBKFT PO Last administered on at 09:02; Start 07/05/18 at 08:00; Stop 07/05/18 at 15:40; Status DC Hydrochlorothiazide (Hydrodiuril) 25 mg DAILY PO Last administered on at 09:03; Start 07/05/18 at 09:00; Stop 07/05/18 at 15:40; Status DC Losartan Potassium (Cozaar) 100 mg DAILY PO Last administered on 07/05/18at 09: 02; Start 07/05/18 at 09:00; Stop 07/05/18 at 15:40; Status DC Linagliptin (Tradjenta) 5 mg DAILY PO Last administered on 07/05/18at 09:03; Start 07/05/18 at 09:00; Stop 07/05/18 at 15:40; Status DC Ibuprofen (Motrin) 600 mg PRN Q6HRS PRN PO INFLAMMATION Last administered on at 19:25; Start 07/04/18 at 19:30; Stop 07/05/18 at 15:40; Status DC Potassium Chloride (Klor-Con) 20 meq 1X ONCE PO Last administered on at 14:22; Start 07/05/18 at 14:00; Stop 07/05/18 at 14:01; Status DC Active Scripts Active Plavix (Clopidogrel Bisulfate) 75 Mg Tablet 75 Mg PO DAILYWBKFT Coreg (Carvedilol) 12.5 Mg Tablet 12.5 Mg PO BIDWMEALS Lipitor (Atorvastatin Calcium) 20 Mg Tablet 20 Mg PO QHS Ecotrin (Aspirin) 325 Mg Tablet.dr 325 Mg PO DAILYWBKFT Reported Ranexa (Ranolazine) 500 Mg Tab.er.12h 500 Mg PO BID Januvia (Sitagliptin Phosphate) 100 Mg Tablet 1 Tab PO DAILY Wellbutrin Sr (Bupropion Hcl) 100 Mg Tablet.er 100 Mg PO DAILY Hydrochlorothiazide Tablet (Hydrochlorothiazide) 25 Mg Tablet 25 Mg PO DAILY Losartan Potassium 100 Mg Tablet 100 Mg PO DAILY Amlodipine Besylate 10 Mg Tablet 10 Mg PO DAILY Allergies Allergies: Coded Allergies: No Known Drug Allergies (Unverified , 10/11/14) Physical Exam General: Alert, Oriented X3, Cooperative HEENT: Atraumatic, PERRLA Lungs: Clear to auscultation Heart: S1S2, RRR, no murmurs Abdomen: Normal bowel sounds, Soft Rectal Exam: deferred Extremities: No edema Psych/Mental Status: Mental status NL Vitals Vitals Vital Signs Date Time Temp Pulse Resp B/P (MAP) Pulse Ox O2 Delivery O2 Flow Rate FiO2 07/05/18 11:00 98.2 82 20 152/94 (113) 98 Room Air 98.2 07/04/18 11:37 2.0 VTE Prophylaxis Ordered VTE Prophylaxis Devices: Yes VTE Pharmacological Prophylaxi: Yes Assessment/Plan Assessment/Plan Pt with known Hx of CAD that has a stent to the LAD and has been having chest pains. Unstable angina He is coming for a L Heart Cath-Poss. Informed consent obtained. Cath today. CARISSA SAMUEL MD Jul 10, 2018 16:22
== END 2018-07-05 14:50 | disposition home or self-care (01) | DRG 287 ==
LOC: CCL 08:04 → 2 SOUTH 10:45
PROVIDERS: ADMIT Internal Medicine Cardiovascular Disease; ATTEND Internal Medicine Cardiovascular Disease
PROC: 4A023N7 Measurement of Cardiac Sampling and Pressure, Left Heart, Percutaneous Approach (ICD-10-PCS; principal; 2018-07-04)
PROC: B2111ZZ Fluoroscopy of Multiple Coronary Arteries using Low Osmolar Contrast (ICD-10-PCS; 2018-07-04)
PROC: B2151ZZ Fluoroscopy of Left Heart using Low Osmolar Contrast (ICD-10-PCS; 2018-07-04)
DX: I25.10 Atherosclerotic heart disease of native coronary artery without angina pectoris (principal); R07.9 Chest pain, unspecified; Z82.49 Family history of ischemic heart disease and other diseases of the circulatory system; I10 Essential (primary) hypertension; E78.5 Hyperlipidemia, unspecified; I25.2 Old myocardial infarction
CPT/HCPCS: 36415; 80048; 80053; 82962; 85025; 85027; 85347; 85610; 90471; 90756; 93458; 99152; 99153; C1725; C1769; C1771; C1887; C1892; G0269; J1644; J2250; J3010; J7030; Q9967; Q2035